=== PATIENT | female | born 1980 | race African-American/Black ===

== ENCOUNTER 2024-10-24 17:30 | Inpatient (IN) | payer MEDICAID ==
[~2024-10-24] VITALS: Ht 162.6 cm; Wt 69.9 kg
[2024-10-24] MEDS ORDERED: MORPHINE SULFATE 4 MG/ML INJ (FOR IV/IM USE) IV STA (18:08)
[2024-10-24] MEDS ORDERED: ONDANSETRON HCL 4MG/2ML INJ IV STA (18:08)
[2024-10-24] MEDS ORDERED: HYDRALAZINE 20MG/ML VIAL IV ONE (18:15)
[2024-10-24] MEDS ORDERED: SODIUM CHLORIDE 0.9% 1,000 ML IV ONE (18:15)
[2024-10-24] MEDS: ONDANSETRON HCL 4MG/2ML INJ IV NR (20:36)
[2024-10-24] MEDS: MORPHINE SULFATE 4 MG/ML INJ (FOR IV/IM USE) IV NR (20:37)
[2024-10-24] MEDS: PIPERACILLIN/TAZO 3.375G/50ML 50 ML IV ONE (22:02)
[2024-10-24 22:03] LABS: CARBON DIOXIDE 22 mEq/L (21-32); CHLORIDE 100 mEq/L (98-107); POTASSIUM 3.9 mEq/L (3.5-5.1); SODIUM 136 mEq/L (136-145)
[2024-10-24] MEDS: DIPHENHYDRAMINE 50MG/ML VIAL IV ONE (22:03)
[2024-10-24 22:04] LABS: CALCIUM 9.2 mg/dL (8.7-10.4)
[2024-10-24 22:06] LABS: INR 1.2; PARTIAL THROMBOPLASTIN TIME 37.1 sec (23.4-31.0); PROTHROMBIN TIME 13.5 sec (9.6-11.0)
[2024-10-24 22:09] LABS: GLUCOSE 140 mg/dL (70-105); UREA NITROGEN BLOOD 49 mg/dL (9-23)
[2024-10-24 22:10] LABS: ALANINE AMINOTRANSFERASE 75 IU/L (10-49); ALBUMIN 3.2 g/dL (3.2-4.8); ASPARTATE AMINOTRANSFERASE 72 IU/L (<34)
[2024-10-24 22:11] LABS: BILIRUBIN DIRECT 11.6 mg/dL (<=3.0); PROTEIN TOTAL 8.3 g/dL (6.0-8.3)
[2024-10-24 22:16] LABS: HEMATOCRIT. 29.4 % (36.0-48.0); HEMOGLOBIN. 9.9 g/dL (12.0-16.0); MEAN CORPUSCULAR HEMOGLOBIN 28.9 pg (28.0-32.0); MEAN CORPUSCULAR HGB CONC 33.7 g/dL (31.0-37.0); MEAN CORPUSCULAR VOLUME 85.8 fL (81.0-99.0); MEAN PLATELET VOLUME 8.9 fl (7.4-10.4); PLATELET 460 x1000/uL (130-400); RED BLOOD CELL COUNT 3.43 mill/uL (4.2-5.4); RED CELL DISTRIBUTION WIDTH 19.4 % (11.6-14.6)
[2024-10-24 22:17] LABS: DIFFERENTIAL COMMENT 1
[2024-10-24 22:32] LABS: HCG SCREEN NEGATIVE
[2024-10-24 22:36] LABS: ANISOCYTOSIS 1+; PLATELET ESTIMATE INCREASED
[2024-10-24 22:45] LABS: CREATININE 5.2 mg/dL (0.6-1.0); TROPONIN I HIGH SENSITIVITY 49 ng/L (3.0-34)
[2024-10-24] MEDS: HYDRALAZINE 20MG/ML VIAL IV NR (23:05)
[2024-10-24] MEDS: VANCOMYCIN 1G PREMIX 200 ML IV ONE (23:05)
[2024-10-25] MEDS ORDERED: ACETAMINOPHEN 325MG TABLET PO PRN ×2 (01:00)
[2024-10-25] MEDS ORDERED: NA PHOS,M-B/NA PHOS,DI-BA ENEMA 118ML PR PRN (01:00)
[2024-10-25] MEDS ORDERED: DOCUSATE SODIUM 100MG CAPSULE PO PRN (01:00)
[2024-10-25] MEDS ORDERED: MAGNESIUM/ALUMINUM HYDROXIDE/SIMETHICONE 30ML UDC PO PRN (01:00)
[2024-10-25] MEDS ORDERED: HYDROCODONE/ACETAMINOPHEN 10/325MG TABLET PO PRN (01:00)
[2024-10-25] MEDS ORDERED: GUAIFENESIN 200MG/10ML SUGAR FREE UDC PO PRN (01:00)
[2024-10-25] MEDS ORDERED: IPRATROPIUM/ALBUTEROL 0.5-3(2.5)MG/3ML NEB HHN PRN (01:00)
[2024-10-25] MEDS ORDERED: HYDROCODONE/ACETAMINOPHEN 5/325MG TABLET PO PRN (01:00)
[2024-10-25] MEDS ORDERED: ONDANSETRON HCL 4MG/2ML INJ IV PRN (01:00)
[2024-10-25] MEDS: DIPHENHYDRAMINE 50MG/ML VIAL IV PRN (01:45)
[2024-10-25] MEDS: CLONIDINE 0.1MG TABLET PO PRN (03:04)
[2024-10-25 03:50] VITALS: BP 158/83; PULSE 84; RESP 20; TEMP 36.0288
[2024-10-25 04:00] VITALS: BP 158/83; PULSE 84; RESP 20; TEMP 36.00288; O2SAT 97
[2024-10-25] MEDS: MORPHINE SULFATE 2 MG/ML INJ (NOT FOR IM USE) IV PRN (06:27)
[2024-10-25] MEDS: SEVELAMER CARBONATE 800 MG TABLET PO SCH (07:10)
[2024-10-25 08:00] VITALS: BP 139/79; PULSE 80; RESP 20; TEMP 36.72516; O2SAT 96
[2024-10-25] MEDS: PIPERACILLIN/TAZO 3.375G/50ML 50 ML IV SCH ×2 (08:06→20:37)
[2024-10-25] MEDS: PANTOPRAZOLE SODIUM 40 MG/VIAL IV SCH (08:07)
[2024-10-25] MEDS: DEXT 5%/0.45% NACL 1000ML 1,000 ML IV SCH (08:07)
[2024-10-25] MEDS: FOLIC ACID/VITAMIN B COMP W-C TABLET PO SCH (08:39)
[2024-10-25] MEDS ORDERED: PIPERACILLIN/TAZO 3.375G/50ML 50 ML IV SCH ×2 (09:00→13:23)
[2024-10-25 12:00] VITALS: BP 168/98; PULSE 82; RESP 20; TEMP 36.50292; O2SAT 100
[2024-10-25 16:00] VITALS: BP 186/106; PULSE 86; RESP 18; TEMP 36.50292; O2SAT 99
[2024-10-25 16:09] LABS: CHLORIDE 98 mEq/L (98-107); POTASSIUM 4.3 mEq/L (3.5-5.1); SODIUM 135 mEq/L (136-145)
[2024-10-25 16:10] LABS: CALCIUM 9.5 mg/dL (8.7-10.4); CARBON DIOXIDE 22 mEq/L (21-32)
[2024-10-25 16:15] LABS: HEMATOCRIT. 30.8 % (36.0-48.0); HEMOGLOBIN. 10.4 g/dL (12.0-16.0); MEAN CORPUSCULAR HEMOGLOBIN 28.9 pg (28.0-32.0); MEAN CORPUSCULAR HGB CONC 33.8 g/dL (31.0-37.0); MEAN CORPUSCULAR VOLUME 85.6 fL (81.0-99.0); MEAN PLATELET VOLUME 9.1 fl (7.4-10.4); PLATELET 476 x1000/uL (130-400); RED CELL DISTRIBUTION WIDTH 19.3 % (11.6-14.6); TRIGLYCERIDE 242 mg/dL (0-150); UREA NITROGEN BLOOD 53 mg/dL (9-23); WHITE BLOOD COUNT 12.1 x1000/uL (4.5-11.0)
[2024-10-25 16:16] LABS: LDL CHOLESTEROL 329 mg/dL (5-100)
[2024-10-25 16:17] LABS: ALANINE AMINOTRANSFERASE 70 IU/L (10-49); ALBUMIN 3.3 g/dL (3.2-4.8); ASPARTATE AMINOTRANSFERASE 73 IU/L (<34); CHOLESTEROL 373 mg/dL (<200); HDL CHOLESTEROL < 20 mg/dL (>65)
[2024-10-25 16:18] LABS: BILIRUBIN TOTAL 15.3 mg/dL (0.1-1.0); DIFFERENTIAL COMMENT 1; PROTEIN TOTAL 7.9 g/dL (6.0-8.3)
[2024-10-25 16:30] LABS: GLUCOSE 66 mg/dL (70-105); HEPATITIS B SURFACE ANTIGEN NEGATIVE (Negative)
[2024-10-25 16:37] LABS: CREATININE 5.5 mg/dL (0.6-1.0)
[2024-10-25] MEDS: HYDRALAZINE 20MG/ML VIAL IV PRN (16:46)
[2024-10-25 16:51] LABS: HEPATITIS A AB IGM NEGATIVE (Negative)
[2024-10-25 16:52] LABS: HEPATITIS B CORE AB IGM NEGATIVE (Negative); HEPATITIS C AB NON REACTIVE (Neg) (Negative)
[2024-10-25 20:00] VITALS: BP 162/87; PULSE 91; RESP 20; TEMP 36.00288; O2SAT 96
[2024-10-25 23:52] LABS: PLATELET ESTIMATE NORMAL
[2024-10-26] VITALS: BP 167/85; PULSE 85; RESP 20; TEMP 36.33624; O2SAT 97
[2024-10-26 08:00] VITALS: BP 156/100; PULSE 91; RESP 20; TEMP 36.28068; O2SAT 95
[2024-10-26 10:20] VITALS: BP 156/100; PULSE 91; TEMP 97.7; O2SAT 95
== END 2024-10-26 13:00 | disposition home or self-care (01) | DRG 720 ==
LOC: ER 17:30 → 7EST 10-25 00:10 → EDBEDREQ 10-25 00:15 → EDBEDREQDT 10-25 00:15 → EDBEDREQTM 10-25 00:15
PROVIDERS: ADMIT Internal Medicine; ATTEND Internal Medicine
PROC: 5A1D70Z Performance of Urinary Filtration, Intermittent, Less than 6 Hours Per Day (ICD-10-PCS; principal; 2024-10-25)
DX: A41.9 Sepsis, unspecified organism (principal); I12.0 Hypertensive chronic kidney disease with stage 5 chronic kidney disease or end stage renal disease; K81.0 Acute cholecystitis; E11.22 Type 2 diabetes mellitus with diabetic chronic kidney disease; R16.2 Hepatomegaly with splenomegaly, not elsewhere classified; D64.9 Anemia, unspecified; E87.70 Fluid overload, unspecified; K30 Functional dyspepsia; R74.01 Elevation of levels of liver transaminase levels; K57.30 Diverticulosis of large intestine without perforation or abscess without bleeding; R79.89 Other specified abnormal findings of blood chemistry; N18.6 End stage renal disease; K76.89 Other specified diseases of liver; Z99.2 Dependence on renal dialysis
CPT/HCPCS: 36415; 71045; 74176; 74181; 76705; 80048; 80053; 80061; 80076; 80307; 83605; 83880; 84484; 84703; 85025; 86705; 86709; 87340; 93005; 99285; A4606; J0360; J1200; J2270; J2405; J2470; J2543; J3370; J7030